=== PATIENT | female | born 1965 | race American Indian/Alaskan Native ===

== ENCOUNTER 2017-12-20 16:30 | Inpatient (IN) | payer OTHER ==
[2017-12-20 17:22] LABS: Eosinophils # (Auto) 0.1 K/mm3 (0.0-0.4); Eosinophils % (Auto) 2.6 % (0.0-4.3); Hematocrit 34.3 % (30.3-42.9); Hemoglobin 11.1 gm/dl (10.1-14.3); Lymphocytes # (Auto) 2.1 K/mm3 (1.2-5.4); Lymphocytes % (Auto) 44.6 % (13.4-35.0); Mean Corpuscular HGB Conc 32 % (30-34); Mean Corpuscular Hemoglobin 28 pg (28-32); Mean Corpuscular Volume 87 fl (79-97); Monocytes # (Auto) 0.4 K/mm3 (0.0-0.8); Monocytes % (Auto) 8.1 % (0.0-7.3); Platelet Count 371 K/mm3 (140-440); Red Blood Count 3.96 M/mm3 (3.65-5.03); Red Cell Distribution Width 15.2 % (13.2-15.2)
[2017-12-20 17:39] LABS: BUN/Creatinine Ratio 23; Blood Urea Nitrogen 16 mg/dL (7-17); Hemolysis Index 8
--- NOTE | 2017-12-20 17:42 | Emergency Department Report ---
ED Chest Pain HPI - General Chief Complaint: Chest Pain Stated Complaint: SHORTNESS OF BREATH/CHEST PAIN Time Seen by Provider: 12/20/17 17:15 Source: patient Mode of arrival: Ambulatory Limitations: No Limitations - History of Present Illness Initial Comments: Patient is a 52-year-old [place] female with a past medical history of diabetes hypertension and high cholesterol who is presenting with chest discomfort with shortness of breath. Patient states chest pain is a heaviness has been present for approximately 6 months off and on. Patient states when the pain first started it was mostly with exertion and now she is experiencing the chest discomfort at rest. Patient saw her burrer marker axle this morning and was sent here for evaluation. Patient denies any diaphoresis nausea vomiting at this time. Patient states that she recently had a stress test and failed this test is scheduled for a heart catheterization on 12/25/2017. Patient also states that she has intermittent left face numbness as well. This is been present for 3-4 months. Her burrer marker axle is also worried that she may have had a stroke at some point in the past. Patient denies any other deficit other than the facial facial numbness MD Complaint: chest pain - Related Data Allergies Allergy/AdvReac Type Severity Reaction Status Date / Time erythromycin base Allergy Hives Verified 12/20/17 16:41 Heart Score - HEART Score History: Highly suspicious EKG: Normal Age: 45-65 Risk factors: > 3 risk factors or hx of atherosclerotic disease Troponin: < normal limit HEART Score: 5 ED Review of Systems ROS: Stated complaint: SHORTNESS OF BREATH/CHEST PAIN Other details as noted in HPI Comment: All other systems reviewed and negative ED Past Medical Hx - Past Medical History Additional medical history: PRE DIABETIC/ ACID REFLUX - Surgical History Hx Cholecystectomy: Yes Additional Surgical History: HYSTO. 2 C SECTION 2 SHOULDER ARTHROSCOPE KNEE DISKUS . RIGHT FOOT SINUS - Social History Smoking Status: Never Smoker Substance Use Type: None ED Physical Exam - General Limitations: No Limitations General appearance: alert, in no apparent distress - Head Head exam: Present: atraumatic, normocephalic - Eye Eye exam: Present: normal appearance - ENT ENT exam: Present: mucous membranes moist - Neck Neck exam: Present: normal inspection - Respiratory Respiratory exam: Present: normal lung sounds bilaterally. Absent: respiratory distress, wheezes, rales, rhonchi - Cardiovascular Cardiovascular Exam: Present: regular rate, normal rhythm. Absent: systolic murmur, diastolic murmur, rubs, gallop - GI/Abdominal GI/Abdominal exam: Present: soft, normal bowel sounds. Absent: distended, tenderness, guarding, rebound - Extremities Exam Extremities exam: Present: normal inspection - Back Exam Back exam: Present: normal inspection - Neurological Exam Neurological exam: Present: alert, oriented X3 - Psychiatric Psychiatric exam: Present: normal affect, normal mood - Skin Skin exam: Present: warm, dry, intact, normal color. Absent: rash ED Course Vital Signs 12/20/17 16:41 Temperature 97.8 F Pulse Rate 63 Respiratory 18 Rate Blood Pressure 101/50 O2 Sat by Pulse 100 Oximetry DIAZ score - Diaz Score Age > 65: (0) No Aspirin use within the Past 7 Days: (1) Yes 3 or more CAD Risk Factors: (1) Yes 2 or more Angina events in past 24 hrs: (1) Yes Known CAD with more than 50% Stenosis: (0) No Elevated Cardiac Markers: (0) No ST Deviation Greater than 0.5mm: (0) No DIAZ Score: 3 ED Medical Decision Making - Lab Data Result diagrams: 12/20/17 17:00 12/20/17 17:00 - EKG Data -: EKG Interpreted by Nj - EKG Data Interpretation: other (EKG shows sinus rhythm with a rate of 63 normal axis normal intervals. No ST segment elevations or depressions time of interpretation 1636) - Radiology Data Radiology results: report reviewed Chest x-ray is within normal limits - Medical Decision Making Patient is a 52-year-old F Necker female with past medical history of diabetes hypertension and hyperlipidemia presenting with unstable anginal symptoms. Patient states her pain her pain initially was exertional now is at rest. Patient will be admitted to the hospitalist service at this time. For serial enzymes and possible catheterization Critical Care Time: Yes Critical care time in (mins) excluding proc time.: 30 Critical care attestation.: If time is entered above; I have spent that time in minutes in the direct care of this critically ill patient, excluding procedure time. ED Disposition Clinical Impression: Unstable angina Disposition: OP ADMIT IP TO THIS HOSP Is pt being admited?: Yes Does the pt Need Aspirin: No Condition: Stable Instructions: Angina (ED)
[2017-12-20] MEDS ORDERED: TORADOL IV ONE (17:43)
--- NOTE | 2017-12-20 18:37 | History and Physical Report ---
History of Present Illness Chief complaint: My chest hurts History of present illness: 52 YO Female with Obesity, GERD, CAD, DM, HTN, HLD presents to ED for evaluation. Pt states that she has experienced pain in her chest for the past 2 months, however she has noticed an acute worsening of her pain over the ps past 3 days. Pt presented to her control panel builder's office and was evaluated for pain and subsequently underwent a stress test which was abnormal. Pt was sent to ED for evaluation. Pt states that her pain is 6/10, constant, substernal nonradiating, associated with shortness of breath, worse with exertion, not relieved with rest. Pt denies fever, chills, palpitations, NVD, Syncope, Prolonged travel/immobility, individual/family history of DVT/PE, unilateral leg swelling, calf pain, BRBPR, hemoptysis, skin rash, productive cough, or recent ill contacts. Pt seen and evaluated in ED and found to have symptoms consistent with ACS and stable angina. Pt admitted to telemetry. Past History Past Medical History: CAD, diabetes, GERD, hypertension, hyperlipidemia Past Surgical History: cholecystectomy, , hysterectomy Social history: single. denies: smoking, alcohol abuse, prescription drug abuse Family history: diabetes, hypertension Medications and Allergies Allergies Allergy/AdvReac Type Severity Reaction Status Date / Time erythromycin base Allergy Hives Verified 12/20/17 16:41 Home Medications Medication Instructions Recorded Confirmed Last Taken Type Cetirizine HCl [ZyrTEC] 10 mg PO DAILY 12/21/17 12/21/17 12/19/17 History Dicyclomine [Bentyl] 10 mg PO TID 12/21/17 12/21/17 12/19/17 History Gabapentin [Gralise] 300 mg PO BID 12/21/17 12/21/17 12/19/17 History Hydroxychloroquine [Plaquenil] 200 mg PO BID 12/21/17 12/21/17 12/19/17 History Montelukast [Singulair] 10 mg PO DAILY 12/21/17 12/21/17 12/19/17 History tiZANidine [Zanaflex] 4 mg PO DAILY PRN 12/21/17 12/21/17 12/19/17 History Review of Systems Constitutional: no weight loss, no weight gain, no fever, no chills Ears, nose, mouth and throat: no ear pain, no ear discharge, no tinnitis, no decreased hearing, no nose pain Cardiovascular: chest pain, shortness of breath, no orthopnea, no palpitations, no dyspnea on exertion Respiratory: no cough, no cough with sputum, no excessive sputum, no hemoptysis Gastrointestinal: no abdominal pain, no nausea, no vomiting, no diarrhea, no constipation Genitourinary Female: no pelvic pain, no flank pain, no menorrhagia, no dysuria , no urinary frequency, no urgency Rectal: no pain, no incontinence, no bleeding Musculoskeletal: no neck stiffness, no neck pain, no shooting arm pain, no arm numbness/tingling, no low back pain Integumentary: no rash, no pruritis, no redness, no sores, no wounds Neurological: no paralysis, no weakness, no parathesias, no numbness, no tingling, no seizures Psychiatric: no anxiety, no memory loss, no change in sleep habits, no sleep disturbances, no insomnia Endocrine: no cold intolerance, no heat intolerance, no polyphagia, no excessive thirst, no polydipsia, no polyuria, no nocturia Hematologic/Lymphatic: no easy bruising, no easy bleeding Allergic/Immunologic: no urticaria, no allergic rhinitis, no wheezing Exam - Constitutional Vitals: Temp Pulse Resp BP Pulse Ox 97.8 F 63 18 101/50 100 12/20/17 16:41 12/20/17 16:41 12/20/17 16:41 12/20/17 16:41 12/20/17 16:41 General appearance: Present: mild distress - EENT Eyes: Present: PERRL ENT: hearing intact, clear oral mucosa - Neck Neck: Present: supple, normal ROM - Respiratory Respiratory effort: normal Respiratory: bilateral: CTA - Cardiovascular Heart Sounds: Present: S1 & S2. Absent: rub, click - Extremities Extremities: pulses symmetrical, No edema Peripheral Pulses: within normal limits - Abdominal General gastrointestinal: Present: soft, non-tender, non-distended, normal bowel sounds Female genitourinary: Present: normal - Integumentary Integumentary: Present: clear, warm, dry - Musculoskeletal Musculoskeletal: gait normal, strength equal bilaterally - Psychiatric Psychiatric: appropriate mood/affect, intact judgment & insight - Neurologic Neurologic: CNII-XII intact, moves all extremities Results - Labs CBC & Chem 7: 12/20/17 17:00 12/20/17 17:00 Labs: Abnormal lab results 12/20/17 12/20/17 Range/Units 17:00 17:00 Lymph % (Auto) 44.6 H (13.4-35.0) % [place] % (Auto) 8.1 H (0.0-7.3) % Glucose 118 H (65-100) mg/dL Assessment and Plan - Patient Problems (1) ACS (acute coronary syndrome) Current Visit: Yes Status: Acute Plan to address problem: Admit to telemetry, serial cardiac enzymes, ekg, MOrphine, supplemental oxygen, nitro tabs, aspirin, Cardiology consulted, (2) Angina at rest Current Visit: Yes Status: Acute Plan to address problem: serial cardiac enzymes, ekg, cardiology consulted, telemetry monitoring (3) CAD (coronary artery disease) Current Visit: Yes Status: Acute Qualifiers: Coronary Disease-Associated Artery/Lesion type: [place] artery [place] vs. transplanted heart: [place] heart Plan to address problem: low cholesterol diet, antiplatelet therapy, cardiology consulted, pending cardiac cath as per cardiology team. (4) HTN (hypertension) Current Visit: Yes Status: Acute Qualifiers: Hypertension type: essential hypertension Qualified Code(s): I10 - Essential (primary) hypertension Plan to address problem: monitor bp q shift, hydralazine prn, continue medical management. (5) HLD (hyperlipidemia) Current Visit: Yes Status: Acute Qualifiers: Hyperlipidemia type: mixed hyperlipidemia Qualified Code(s): E78.2 - Mixed hyperlipidemia Plan to address problem: Statin therapy, low cholesterol diet, (6) DVT prophylaxis Current Visit: Yes Status: Acute
[2017-12-20] MEDS ORDERED: MORPHINE IV PRN (18:50)
[2017-12-20] MEDS ORDERED: PROVENTIL IH PRN (18:50)
[2017-12-20] MEDS ORDERED: NITROSTAT SL PRN (18:50)
[2017-12-20] MEDS ORDERED: SODIUM CHLORIDE FLUSH SYRINGE 10 ML IV PRN ×2 (18:50→18:56)
[2017-12-20] MEDS ORDERED: DULCOLAX PR PRN ×2 (18:50→18:56)
[2017-12-20] MEDS ORDERED: BABY ASPIRIN PO STA (18:50)
[2017-12-20] MEDS ORDERED: MILK OF MAGNESIA PO PRN ×2 (18:50→18:56)
[2017-12-20] MEDS ORDERED: TYLENOL PO PRN ×2 (18:50→18:56)
[2017-12-20] MEDS ORDERED: PHENERGAN PR PRN (18:56)
[2017-12-20] MEDS ORDERED: REGLAN PO PRN (18:56)
[2017-12-20] MEDS ORDERED: ZOFRAN IV PRN (18:56)
--- NOTE | 2017-12-20 19:01 | Cat Scan Report ---
FINAL REPORT PROCEDURE: CT HEAD/BRAIN WO CON TECHNIQUE: Computerized tomography of the head was performed without contrast material. HISTORY: facial numbness COMPARISON: No prior studies are available for comparison. FINDINGS: Skull and scalp: Normal. Paranasal sinuses: Evidence of prior maxillary sinus surgeries mucosal thickening present. Ventricles and subarachnoid spaces: Normal. Cerebrum: No evidence of hemorrhage, acute infarction or mass . Cerebellum and brainstem: No evidence of hemorrhage, acute infarction or mass. Vasculature: Normal. Comments: If symptoms and or concern persists recommend MRI with without IV gadolinium IMPRESSION: No acute intracranial pathology
[2017-12-20 19:41] LABS: Chol/HDL Ratio 4.17 %
[2017-12-20] MEDS ORDERED: MORPHINE ONE (19:59)
[2017-12-20] MEDS ORDERED: ZOFRAN ONE (20:00)
[2017-12-20] MEDS ORDERED: NITROSTAT SL ONE (20:00)
--- NOTE | 2017-12-20 20:09 | XRay Report ---
FINAL REPORT EXAM: XR CHEST ROUTINE 2V HISTORY: CHEST PAIN, SOB TECHNIQUE: Two views of the chest Comparison: None FINDINGS: Low lung volumes with secondary bronchovascular crowding at the bases. There is ill-defined opacity in the left lower lobe which may represent infiltrate. Sharp costophrenic angles. Imaged axial skeleton is unremarkable. The image is entered backwards in the PACs and resembles dextrocardia. IMPRESSION: Low lung volume exam with mild crowding of the interstitial markings at the bases. Possible left lower lobe pneumonia.
[2017-12-20] MEDS: ZOFRAN IV PRN (20:19)
[2017-12-21] MEDS ORDERED: PEPCID ONE (00:06)
[2017-12-21] MEDS: PEPCID PO SCH ×3 (00:07→21:50)
[2017-12-21] MEDS: NACL 0.9% 1000 ML 1,000 ML IV SCH (04:21)
[2017-12-21] MEDS: ZOFRAN IV PRN (09:32)
[2017-12-21] MEDS ORDERED: MORPHINE IV PRN (10:00)
--- NOTE | 2017-12-21 11:04 | Consultation ---
Past History Past Medical History: CAD, diabetes, GERD, hypertension, hyperlipidemia Past Surgical History: cholecystectomy, , hysterectomy Social history: single. denies: smoking, alcohol abuse, prescription drug abuse Family history: diabetes, hypertension Medications and Allergies Allergies Allergy/AdvReac Type Severity Reaction Status Date / Time erythromycin base Allergy Hives Verified 12/20/17 16:41 Home Medications Medication Instructions Recorded Confirmed Last Taken Type Cetirizine HCl [ZyrTEC] 10 mg PO DAILY 12/21/17 12/21/17 12/19/17 History Dicyclomine [Bentyl] 10 mg PO TID 12/21/17 12/21/17 12/19/17 History Gabapentin [Gralise] 300 mg PO BID 12/21/17 12/21/17 12/19/17 History Hydroxychloroquine [Plaquenil] 200 mg PO BID 12/21/17 12/21/17 12/19/17 History Montelukast [Singulair] 10 mg PO DAILY 12/21/17 12/21/17 12/19/17 History tiZANidine [Zanaflex] 4 mg PO DAILY PRN 12/21/17 12/21/17 12/19/17 History Active Meds: Active Medications Acetaminophen (Tylenol) 650 mg PO Q4H PRN PRN Reason: Pain MILD(1-3)/Fever >100.5/PRADO Albuterol (Proventil) 2.5 mg IH Q4HRT PRN PRN Reason: Shortness Of Breath Aspirin (Aspirin) 325 mg PO QDAY [facility] Bisacodyl (Dulcolax) 10 mg RI QDAY PRN PRN Reason: Constipation unrelieved by MOM Famotidine (Pepcid) 20 mg PO BID [facility] Last Admin: 12/21/17 09:32 Dose: Not Given Heparin Sodium (Porcine) (Heparin) 5,000 unit SUB-Q Q8HR [facility] Sodium Chloride (Nacl 0.9% 1000 Ml) 1,000 mls @ 100 mls/hr IV DIRECT [facility] Last Admin: 12/21/17 04:21 Dose: 100 mls/hr Magnesium Hydroxide (Milk Of Magnesia) 30 ml PO Q4H PRN PRN Reason: Constipation Metoclopramide HCl (Reglan) 10 mg PO Q6H PRN PRN Reason: Nausea And Vomiting Morphine Sulfate (Morphine) 2 mg IV Q4H PRN PRN Reason: Pain, Moderate (4-6) Last Admin: 12/21/17 09:45 Dose: 2 mg Nitroglycerin (Nitrostat) 0.4 mg SL Q5M PRN PRN Reason: Chest Pain Last Admin: 12/20/17 20:18 Dose: 0.4 mg Ondansetron HCl (Zofran) 4 mg IV Q8H PRN PRN Reason: N/V unrelieved by Reglan Last Admin: 12/21/17 09:32 Dose: 4 mg Promethazine HCl (Phenergan) 25 mg RI Q6H PRN PRN Reason: Nausea And Vomiting Sodium Chloride (Sodium Chloride Flush Syringe 10 Ml) 10 ml IV PRN PRN PRN Reason: LINE FLUSH Physical Examination Vital Signs Temp Pulse Resp BP Pulse Ox 97.8 F 63 18 101/50 100 12/20/17 16:41 12/20/17 16:41 12/20/17 16:41 12/20/17 16:41 12/20/17 16:41 Results 12/20/17 17:00 12/20/17 17:00 Lipids 12/20/17 Range/Units 19:01 Triglycerides 121 (2-149) mg/dL Cholesterol 188 (50-199) mg/dL HDL Cholesterol 45 (40-59) mg/dL Cholesterol/HDL Ratio 4.17 % CBC 12/20/17 Range/Units 17:00 WBC 4.7 (4.5-11.0) K/mm3 RBC 3.96 (3.65-5.03) M/mm3 Hgb 11.1 (10.1-14.3) gm/dl Hct 34.3 (30.3-42.9) % Plt Count 371 (140-440) K/mm3 Lymph # 2.1 (1.2-5.4) K/mm3 [place] # 0.4 (0.0-0.8) K/mm3 Eos # 0.1 (0.0-0.4) K/mm3 Baso # 0.0 (0.0-0.1) K/mm3 Comprehensive Metabolic Panel 12/20/17 Range/Units 17:00 Sodium 141 (137-145) mmol/L Potassium 4.9 (3.6-5.0) mmol/L Chloride 103.6 (98-107) mmol/L Carbon Dioxide 25 (22-30) mmol/L BUN 16 (7-17) mg/dL Creatinine 0.7 (0.7-1.2) mg/dL Glucose 118 H (65-100) mg/dL Calcium 9.0 (8.4-10.2) mg/dL Assessment and Plan full consult dictated thanks
--- NOTE | 2017-12-21 16:14 | Progress Note ---
Assessment and Plan Assessment and plan: 52-year-old -[place] female was admitted from cardiology clinic after she had abnormal stress test Patient is also complaining chest pain CAD, Border line diabetes mellitus - Patient is on aspirin, Pain control - Cardiology was consulted and will have cardiac cath on Saturday - Hemoglobin A1c 6.5 and advised to have diet modifications and exercise DVT prophylaxis, on heparin Disposition - After cardiac cath History Interval history: Patient was seen and evaluated this morning, patient still complaining chest pain, patient said morphine and nitroglycerin didn't help much and changed to Percocet. Hospitalist Physical - Physical exam Narrative exam: Not in cardiopulmonary distress. The patient appeared well nourished and normally developed. Vital signs as documented. Head exam is unremarkable. No scleral icterus . Neck is without jugular venous distension, thyromegaly, or carotid bruits. Lungs are clear to auscultation. Cardiac exam reveals regular rate and Rhythm. Abdominal exam reveals normal bowel sounds, no masses, no organomegaly and no aortic enlargement. Extremities are nonedematous and both femoral and pedal pulses are normal. CUT OFF SAW OPERATOR PIPE BLANKS: Alert and oriented 3. No focal weakness. - Constitutional Vitals: Temp Pulse Resp BP Pulse Ox 97.9 F 63 18 127/68 100 12/21/17 09:01 12/21/17 06:19 12/21/17 09:01 12/21/17 09:01 12/21/17 10:00 General appearance: Present: mild distress Results - Labs CBC & Chem 7: 12/20/17 17:00 12/20/17 17:00 Labs: Laboratory Last Values WBC 4.7 K/mm3 (4.5-11.0) 12/20/17 17:00 RBC 3.96 M/mm3 (3.65-5.03) 12/20/17 17:00 Hgb 11.1 gm/dl (10.1-14.3) 12/20/17 17:00 Hct 34.3 % (30.3-42.9) 12/20/17 17:00 MCV 87 fl (79-97) 12/20/17 17:00 MCH 28 pg (28-32) 12/20/17 17:00 MCHC 32 % (30-34) 12/20/17 17:00 RDW 15.2 % (13.2-15.2) 12/20/17 17:00 Plt Count 371 K/mm3 (140-440) 12/20/17 17:00 Lymph % (Auto) 44.6 % (13.4-35.0) H 12/20/17 17:00 [place] % (Auto) 8.1 % (0.0-7.3) H 12/20/17 17:00 Eos % (Auto) 2.6 % (0.0-4.3) 12/20/17 17:00 Baso % (Auto) 1.0 % (0.0-1.8) 12/20/17 17:00 Lymph # 2.1 K/mm3 (1.2-5.4) 12/20/17 17:00 [place] # 0.4 K/mm3 (0.0-0.8) 12/20/17 17:00 Eos # 0.1 K/mm3 (0.0-0.4) 12/20/17 17:00 Baso # 0.0 K/mm3 (0.0-0.1) 12/20/17 17:00 Seg Neutrophils % 43.7 % (40.0-70.0) 12/20/17 17:00 Seg Neutrophils # 2.1 K/mm3 (1.8-7.7) 12/20/17 17:00 D-Dimer 164.11 ng/mlDDU (0-234) 12/21/17 14:39 Sodium 141 mmol/L (137-145) 12/20/17 17:00 Potassium 4.9 mmol/L (3.6-5.0) 12/20/17 17:00 Chloride 103.6 mmol/L (98-107) 12/20/17 17:00 Carbon Dioxide 25 mmol/L (22-30) 12/20/17 17:00 Anion Gap 17 mmol/L 12/20/17 17:00 BUN 16 mg/dL (7-17) 12/20/17 17:00 Creatinine 0.7 mg/dL (0.7-1.2) 12/20/17 17:00 Estimated GFR > 60 ml/min 12/20/17 17:00 BUN/Creatinine Ratio 23 % 12/20/17 17:00 Glucose 118 mg/dL (65-100) H 12/20/17 17:00 Hemoglobin A1c 6.5 % (4-6) H 12/20/17 19:01 Calcium 9.0 mg/dL (8.4-10.2) 12/20/17 17:00 Troponin T < 0.010 ng/mL (0.00-0.029) 12/21/17 01:01 Triglycerides 121 mg/dL (2-149) 12/20/17 19:01 Cholesterol 188 mg/dL (50-199) 12/20/17 19:01 LDL Cholesterol Direct 119 mg/dL (50-130) 12/20/17 19:01 HDL Cholesterol 45 mg/dL (40-59) 12/20/17 19:01 Cholesterol/HDL Ratio 4.17 % 12/20/17 19:01
[2017-12-21] MEDS: ASPIRIN PO SCH (16:21)
[2017-12-21] MEDS: HEPARIN SUB-Q SCH ×2 (16:22→21:50)
[2017-12-21] MEDS: PERCOCET 5/325 PO PRN (19:08)
[2017-12-22] MEDS: NACL 0.9% 1000 ML 1,000 ML IV SCH (00:42)
[2017-12-22] MEDS: HEPARIN SUB-Q SCH ×3 (06:24→21:46)
--- NOTE | 2017-12-22 08:40 | Consultation ---
CARDIOLOGY CONSULTATION REFERRING PHYSICIAN: Dr. Jl Liu. REASON FOR CONSULTATION: Advice and opinion regarding shortness of breath. HISTORY OF PRESENT ILLNESS: The patient is a very pleasant 52-year-old female who sees Dr. Naranjo in our office who has had a 6-month history of progressive shortness of breath, occasional chest pain. She is unable to walk on her treadmill. She is seen on telemetry. Her daughter is at bedside. She has a family history of ischemic heart disease, hyperlipidemia, and prediabetes. She is chest pain free at this time, feels better. No shortness of breath. No lightheadedness or dizziness. No hematochezia, melena, hemoptysis, or hematemesis. Medical history is aforementioned. Inpatient and outpatient medications reviewed. ALLERGIES: ERYTHROMYCIN. SOCIAL HISTORY: Nonsmoker, nondrinker. She saw Dr. Naranjo yesterday in the office. She had a recent stress test which was unremarkable for ischemia. Recent echocardiogram revealed normal LV function, mild MR, and mild TR. She continued to complain of shortness of breath. She was sent to the Emergency Room. PHYSICAL EXAMINATION: VITAL SIGNS: Blood pressure is 120/60. She is afebrile. Tele reveals sinus rhythm, no dysrhythmias. O2 sat is 100% on room air. GENERAL: This is a young female in no apparent distress, oriented x 3. HEENT: Sclerae are anicteric. NECK: Supple. No masses, no JVD. CHEST: Clear to auscultation bilaterally. Good air movement. CARDIOVASCULAR: Regular S1-S2. ABDOMEN: Soft, nontender, nondistended. Normoactive bowel sounds in all 4 quadrants. No mass or bruits. EXTREMITIES: No cyanosis, clubbing, edema. Good peripheral pulses. SKIN: Intact. No rashes. LABORATORY DATA: EKG is normal. Cardiac enzymes are negative x 3. BMP and CBC are unremarkable. Chest x-ray reveals low lung volumes, questionable left lower lobe pneumonia. ASSESSMENT AND PLAN: At this point, the patient is clinically stable, chest pain free. Cardiac enzymes negative. EKG negative. Chest x-ray consistent with possible pneumonia. We will discuss with the hospitalist regarding initiation of antibiotic. She is afebrile. She will be reevaluated in a.m., also add a D-dimer. Should her symptoms continue, we will consider a left heart cath due to recurrent chest pain. JOB# [id number] BE/RUTHIE
--- NOTE | 2017-12-22 10:24 | Magnetic Resonance Report ---
MRI OF THE BRAIN WITHOUT CONTRAST: HISTORY: Stroke, facial numbness PROCEDURE: Multiplanar, multisequence MR imaging of the brain without IV contrast was performed. FINDINGS: The CT head without contrast performed 12/20/17 was reviewed. The brain parenchyma signal intensity and its rapp white interface are within normal limits on all sequences. Minimal nonspecific T2 signal abnormalities in the periventricular white matter are noted. No evidence for acute ischemia, hemorrhage or mass. No chronic infarct or extra-axial fluid collection. The midline structures are central. The basal cisterns are patent. Normal ventricular size. The orbital cavities and sella turcica demonstrate no abnormality. The visualized paranasal sinuses and mastoid air cells are well aerated. IMPRESSION: Unremarkable non-enhanced MRI of the brain.
--- NOTE | 2017-12-22 10:25 | Magnetic Resonance Report ---
MRA HEAD WITHOUT CONTRAST HISTORY: Stroke. [id number] imaging with MIP reformations of the [place] is submitted. The arteries appear widely patent and free of hemodynamically significant stenosis, aneurysm or dissection. IMPRESSION: Unremarkable MRA head.
[2017-12-22] MEDS: PEPCID PO SCH ×2 (10:45→21:46)
[2017-12-22] MEDS: ASPIRIN PO SCH (10:45)
[2017-12-22] MEDS: PERCOCET 5/325 PO PRN (10:56)
--- NOTE | 2017-12-22 11:10 | Progress Note ---
Assessment and Plan Given recurrent cp (neg stress mpi in office this month) despite optimal medical therapy, I discussed the options w/ pt. She would like to proceed with [facility]. Risks/benefits/alternatives d/w pt at length. Neuro w/u for facial tingling including mri/mra unremarkable. carotid pending. Subjective Date of service: 12/22/17 Interval history: still w cp - on and off Objective Vital Signs Temp Pulse Resp BP Pulse Ox 12/22/17 05:52 97.4 F L 63 20 108/70 97 12/22/17 05:00 61 12/22/17 00:12 97.7 F 72 20 99/58 97 12/21/17 22:10 98 12/21/17 20:54 98.1 F 66 20 85/42 98 12/21/17 16:02 77 141/68 97
[2017-12-22 11:44] LABS: BUN/Creatinine Ratio 23; Blood Urea Nitrogen 14 mg/dL (7-17); Calcium 9.2 mg/dL (8.4-10.2); Hemolysis Index 13
--- NOTE | 2017-12-22 15:09 | Progress Note ---
Assessment and Plan Assessment and plan: 52-year-old -[place] female was admitted from cardiology clinic after she had abnormal stress test Patient is also complaining chest pain CAD, Border line diabetes mellitus - Patient is on aspirin, Pain control - Cardiology was consulted and will have cardiac cath on Saturday - Hemoglobin A1c 6.5 and advised to have diet modifications and exercise DVT prophylaxis, on heparin Disposition - After cardiac cath History Interval history: Patient was seen and evaluated this morning, patient still complaining chest pain, but getting better than admission condition. Hospitalist Physical - Physical exam Narrative exam: Not in cardiopulmonary distress. The patient appeared well nourished and normally developed. Vital signs as documented. Head exam is unremarkable. No scleral icterus . Neck is without jugular venous distension, thyromegaly, or carotid bruits. Lungs are clear to auscultation. Cardiac exam reveals regular rate and Rhythm. Abdominal exam reveals normal bowel sounds, no masses, no organomegaly and no aortic enlargement. Extremities are nonedematous and both femoral and pedal pulses are normal. STEM TEACHER: Alert and oriented 3. No focal weakness. - Constitutional Vitals: Temp Pulse Resp BP Pulse Ox 97.4 F L 63 20 108/70 100 12/22/17 05:52 12/22/17 05:52 12/22/17 05:52 12/22/17 05:52 12/22/17 13:15 General appearance: Present: mild distress Results - Labs CBC & Chem 7: 12/20/17 17:00 12/22/17 11:12 Labs: Laboratory Last Values WBC 4.7 K/mm3 (4.5-11.0) 12/20/17 17:00 RBC 3.96 M/mm3 (3.65-5.03) 12/20/17 17:00 Hgb 11.1 gm/dl (10.1-14.3) 12/20/17 17:00 Hct 34.3 % (30.3-42.9) 12/20/17 17:00 MCV 87 fl (79-97) 12/20/17 17:00 MCH 28 pg (28-32) 12/20/17 17:00 MCHC 32 % (30-34) 12/20/17 17:00 RDW 15.2 % (13.2-15.2) 12/20/17 17:00 Plt Count 371 K/mm3 (140-440) 12/20/17 17:00 Lymph % (Auto) 44.6 % (13.4-35.0) H 12/20/17 17:00 [place] % (Auto) 8.1 % (0.0-7.3) H 12/20/17 17:00 Eos % (Auto) 2.6 % (0.0-4.3) 12/20/17 17:00 Baso % (Auto) 1.0 % (0.0-1.8) 12/20/17 17:00 Lymph # 2.1 K/mm3 (1.2-5.4) 12/20/17 17:00 [place] # 0.4 K/mm3 (0.0-0.8) 12/20/17 17:00 Eos # 0.1 K/mm3 (0.0-0.4) 12/20/17 17:00 Baso # 0.0 K/mm3 (0.0-0.1) 12/20/17 17:00 Seg Neutrophils % 43.7 % (40.0-70.0) 12/20/17 17:00 Seg Neutrophils # 2.1 K/mm3 (1.8-7.7) 12/20/17 17:00 D-Dimer 164.11 ng/mlDDU (0-234) 12/21/17 14:39 Sodium 141 mmol/L (137-145) 12/22/17 11:12 Potassium 4.4 mmol/L (3.6-5.0) 12/22/17 11:12 Chloride 103.7 mmol/L (98-107) 12/22/17 11:12 Carbon Dioxide 25 mmol/L (22-30) 12/22/17 11:12 Anion Gap 17 mmol/L 12/22/17 11:12 BUN 14 mg/dL (7-17) 12/22/17 11:12 Creatinine 0.6 mg/dL (0.7-1.2) L 12/22/17 11:12 Estimated GFR > 60 ml/min 12/22/17 11:12 BUN/Creatinine Ratio 23 % 12/22/17 11:12 Glucose 99 mg/dL (65-100) 12/22/17 11:12 Hemoglobin A1c 6.5 % (4-6) H 12/20/17 19:01 Calcium 9.2 mg/dL (8.4-10.2) 12/22/17 11:12 Troponin T < 0.010 ng/mL (0.00-0.029) 12/21/17 01:01 Triglycerides 121 mg/dL (2-149) 12/20/17 19:01 Cholesterol 188 mg/dL (50-199) 12/20/17 19:01 LDL Cholesterol Direct 119 mg/dL (50-130) 12/20/17 19:01 HDL Cholesterol 45 mg/dL (40-59) 12/20/17 19:01 Cholesterol/HDL Ratio 4.17 % 12/20/17 19:01
[2017-12-23] MEDS: NACL 0.9% 1000 ML 1,000 ML IV SCH (00:48)
[2017-12-23] MEDS: HEPARIN SUB-Q SCH ×2 (06:09→14:10)
[2017-12-23 07:07] LABS: INR 0.92 (0.87-1.13)
[2017-12-23 07:08] LABS: Partial Thromboplastin Time 29.2 Sec. (24.2-36.6)
[2017-12-23] MEDS ORDERED: ASPIRIN ONE (09:04)
[2017-12-23] MEDS ORDERED: NITROGLYCERIN SYRINGE 3 ML ONE (09:04)
[2017-12-23] MEDS ORDERED: HEPARIN/NS 5000 UNIT/500ML(CATH LAB) 1,000 ML IR ONE (09:04)
[2017-12-23] MEDS: ASPIRIN PO SCH (09:04)
[2017-12-23] MEDS ORDERED: CALAN ONE (09:04)
[2017-12-23] MEDS ORDERED: XYLOCAINE 2% INFILTRATI ONE (09:04)
[2017-12-23] MEDS ORDERED: HEPARIN 10,000 UNITS/10 ML ONE (09:04)
[2017-12-23] MEDS ORDERED: SUBLIMAZE ONE (09:05)
[2017-12-23] MEDS ORDERED: VERSED ONE (09:05)
--- NOTE | 2017-12-23 10:01 | Progress Note ---
Assessment and Plan Recurrent chest pain despite negative stress test possible costochondritis Hypertension Obesity Hyperlipidemia Recommend in view of normal cardiac cath post cath care, try anti- inflammatories patient is a discharge from cardiovascular care Subjective Date of service: 12/23/17 Principal diagnosis: chest pain Interval history: pt having some intermittent chest pain reproducible Objective Vital Signs Temp Pulse Pulse Resp BP BP Pulse Ox 12/23/17 08:53 58 L 18 12/23/17 08:44 97.4 F L 58 L 18 103/57 95 12/23/17 04:04 97.4 F L 61 20 118/66 100 12/23/17 00:34 97.9 F 57 L 20 88/40 97 12/22/17 23:50 61 88/40 96 12/22/17 22:00 88 12/22/17 17:27 98.7 F 71 18 150/97 98 12/22/17 13:15 100 - Physical Examination General: Appears Well, No Apparent Distress HEENT: Positive: PERRL, EOMI Neck: Positive: neck supple Cardiac: Positive: Reg Rate and Rhythm Lungs: Positive: Normal Exam, clear to auscultation Neuro: Positive: Grossly Intact Abdomen: /Rectal: Normal Prostate, No Masses Skin: Incision: Cardiac Cath Site (no hematoma) Musculoskeletal: No Fluid Collection, No Pain, Normal Range of Motion Gait: Normal Gait Extremities: Present: normal. Absent: edema - Labs and Meds Coagulation 12/23/17 Range/Units 06:28 PT 12.8 (12.2-14.9) Sec. INR 0.92 (0.87-1.13) APTT 29.2 (24.2-36.6) Sec. Comprehensive Metabolic Panel 12/22/17 Range/Units 11:12 Sodium 141 (137-145) mmol/L Potassium 4.4 (3.6-5.0) mmol/L Chloride 103.7 (98-107) mmol/L Carbon Dioxide 25 (22-30) mmol/L BUN 14 (7-17) mg/dL Creatinine 0.6 L (0.7-1.2) mg/dL Glucose 99 (65-100) mg/dL Calcium 9.2 (8.4-10.2) mg/dL - Imaging and Cardiology Cardiac cath: report reviewed (normal coronaries normal LV function)
[2017-12-23] MEDS ORDERED: MOTRIN PO PRN (10:02)
[2017-12-23] MEDS: PERCOCET 5/325 PO PRN (10:36)
[2017-12-23] MEDS: ZOFRAN IV PRN (10:37)
[2017-12-23] MEDS: PEPCID PO SCH (10:37)
--- NOTE | 2017-12-23 10:56 | Cardiac Catherization Report ---
CARDIAC CATHETERIZATION REFERRING PHYSICIAN: Dictaphone Transcriber, Cole Naranjo MD. CLINICAL INFORMATION: This is a 52-year-old -[place] female with hypertension, recurrent chest pain despite having negative stress test, was sent from the office for recurrent chest pain and negative cardiac enzymes here for left heart catheterization. Moderate sedation was used under my supervision, 50 mcg of fentanyl and 1 mg Versed, total sedation time was 20 minutes. SEDATION START TIME: Started at 9:36 a.m. and finished at 9:56 a.m. supervised. PROCEDURE DETAILS: Left heart catheterization performed via the right radial artery, sterile technique, local anesthesia, 6-Iranian radial sheath inserted. PROCEDURE FINDINGS: Left system engaged with JL3.5 catheter. Left main is large and patent, bifurcates to large LAD with moderate tortuosity patent. Diagonal 1 is a medium caliber vessel, patent, moderate tortuosity. Ramus is medium caliber vessel, patent with moderate tortuosity. Circumflex and AV groove is a moderate caliber vessel with moderate tortuosity, patent. RCA is a large dominant vessel, patent from proximally and distally, bifurcates into medium caliber PDA, PLV that are patent, engaged with JR4 catheter. LV gram done in [place] and MATTHEWS view shows normal function, LVEDP of 20 mmHg, LV is 143. Aortic is 137/77. No gradient across the aortic valve on pullback. 5-Iranian catheters were taken over guidewire, 6-Iranian radial sheath was discontinued. Radial dressing applied. No hematoma, no bleeding. SUMMARY: 1. Normal coronaries, right dominant system, mild to moderate tortuous vessels with normal LV function. 2. Post cardiac catheterization care. 3. Continue risk factor modification. Discussed this in detail with the patient. JOB# [id number] KEISHA/RUTHIE
--- NOTE | 2017-12-23 17:02 | Discharge Summary ---
Providers - Providers Date of Admission: 12/20/17 18:50 Date of discharge: 12/23/17 Attending physician: FRANCY JAY MD 12/20/17 Consult to Cardiac Rehabilitation [CONS] Routine Reason For Exam: Phase I 12/20/17 18:50 Consult to Cardiology [CONS] Routine Consulting Provider: LUIS FERNANDO VILLAGRAN Reason For Exam: acs 12/20/17 18:56 Occupational Therapy Evaluate and Treat [CONS] Routine Comment: Reason For Exam: Neuro deficits Physical Therapy Evaluation and Treat [CONS] Routine Comment: Reason For Exam: Neuro deficits Speech Therapy Evaluation and Treat [CONS] Routine Reason For Exam: swallow eval 12/23/17 10:02 Consult to Cardiac Rehabilitation [CONS] Routine Reason For Exam: Cardiac Rehab Evaluation Primary care physician: WANDER BRANTLEY Hospitalization Reason for admission: Chest pain Condition: Stable Disposition: DC-01 TO HOME OR SELFCARE Time spent for discharge: 31 minutes - Discharge Diagnoses (1) Angina at rest Status: Acute (2) CAD (coronary artery disease) Status: Acute Qualifiers: Coronary Disease-Associated Artery/Lesion type: [place] artery [place] vs. transplanted heart: buck[place] heart (3) HLD (hyperlipidemia) Status: Acute Qualifiers: Hyperlipidemia type: mixed hyperlipidemia Qualified Code(s): E78.2 - Mixed hyperlipidemia (4) HTN (hypertension) Status: Acute Qualifiers: Hypertension type: essential hypertension Qualified Code(s): I10 - Essential (primary) hypertension (5) Unstable angina Status: Acute Core Measure Documentation - Palliative Care Palliative Care/ Comfort Measures: Not Applicable - Core Measures Any of the following diagnoses?: none Exam - Physical Exam Narrative exam: Not in cardiopulmonary distress. The patient appeared well nourished and normally developed. Vital signs as documented. Head exam is unremarkable. No scleral icterus . Neck is without jugular venous distension, thyromegaly, or carotid bruits. Lungs are clear to auscultation. Cardiac exam reveals regular rate and Rhythm. Abdominal exam reveals normal bowel sounds, no masses, no organomegaly and no aortic enlargement. Extremities are nonedematous and both femoral and pedal pulses are normal. UNIT REACTOR OPERATOR: Alert and oriented 3. No focal weakness. - Constitutional Vitals: Temp Pulse Resp BP Pulse Ox 97 F L 72 18 126/70 93 12/23/17 11:00 12/23/17 12:56 12/23/17 12:56 12/23/17 12:56 12/23/17 15:53 Plan Activity: no restrictions Weight Bearing Status: Full Weight Bearing Diet: low cholesterol, low salt Follow up with: WANDER BRANTLEY NP-C [Primary Care Provider] - 7 Days
[2017-12-23 17:46] VITALS: BP 99/55
== END 2017-12-23 18:24 | disposition home or self-care (01) | DRG 287 ==
LOC: ED 16:30 → 4A 18:50
PROVIDERS: ADMIT Internal Medicine; ATTEND Internal Medicine
PROC: 4A023N7 Measurement of Cardiac Sampling and Pressure, Left Heart, Percutaneous Approach (ICD-10-PCS; principal; 2017-12-23)
PROC: B2151ZZ Fluoroscopy of Left Heart using Low Osmolar Contrast (ICD-10-PCS; 2017-12-23)
PROC: B2111ZZ Fluoroscopy of Multiple Coronary Arteries using Low Osmolar Contrast (ICD-10-PCS; 2017-12-23)
DX: I25.110 Atherosclerotic heart disease of native coronary artery with unstable angina pectoris (principal); E11.9 Type 2 diabetes mellitus without complications; I10 Essential (primary) hypertension; E78.00 Pure hypercholesterolemia, unspecified; Z88.1 Allergy status to other antibiotic agents; K21.9 Gastro-esophageal reflux disease without esophagitis; Z90.49 Acquired absence of other specified parts of digestive tract; E66.9 Obesity, unspecified; Z90.710 Acquired absence of both cervix and uterus; Z83.3 Family history of diabetes mellitus; Z82.49 Family history of ischemic heart disease and other diseases of the circulatory system; Z68.34 Body mass index [BMI] 34.0-34.9, adult
CPT/HCPCS: 36415; 70450; 70544; 70551; 71046; 80048; 80061; 83036; 84484; 85025; 85379; 85610; 85730; 93005; 93010; 93458; 93880; 94760; 96374; 96375; C1894; J1644; J1885; J2250; J2270; J2405; J3010; J7030; Q9967